=== PATIENT | male | born 1955 | race Caucasian/White ===

== ENCOUNTER → 2022-01-30 16:51 | Outpatient (CLI) | payer MEDICARE, OTHER, SELFPAY | PROVIDERS: PCP Family Medicine; Visit Provider Physician Assistant Medical | DX: Z01.818 Encounter for other preprocedural examination (principal) | CPT/HCPCS: 87797 ==

== ENCOUNTER → 2022-01-31 10:00 | Outpatient (CLI) | payer MEDICARE, OTHER, SELFPAY ==
[2022-01-31 19:40] LABS: Hemoglobin A1C% w Est Avg Glu 6.2 % (4.0-6.0)
[2022-01-31 19:41] LABS: Alanine Aminotransferase 56 IU/L (<50); Albumin 4.3 g/dL (3.5-5.0); Albumin Globulin Ratio 1.6 (1.0-2.8); Alkaline Phosphatase 80 U/L (38-126); Aspartate Aminotransferase 44 IU/L (17-59); BUN Creatinine Ratio 17.6 (6-22); Blood Urea Nitrogen 13 mg/dL (9-20); Calcium 9.5 mg/dL (8.4-10.2); Carbon Dioxide 30 mmol/L (22-32); Chloride 101 mmol/L (98-107); Estimated Glomerular Filt Rate > 60.0 mL/min (>60); Globulin 2.7 g/dL (1.7-4.1); Glucose 107 mg/dL (80-110); HEMOLYSIS < 15 (0-50); Potassium 4.2 mmol/L (3.4-5.1); Sodium 137 mmol/L (137-145)
[2022-01-31 19:42] LABS: Cholesterol 186 mg/dL (140-199); HDL Cholesterol 51 mg/dL (40-60); LDL Cholesterol Calculated 115 mg/dL (<100); Triglycerides 102 mg/dL (35-150)
[2022-01-31 19:57] LABS: Add Manual Diff / Slide Review NO; Basophils Absolute Auto 0 /uL (0-100); Basophils Percent Auto 0.4 % (0-2); Eosinophils Absolute Auto 200 /uL (0-450); Hematocrit 43.6 % (41-53); Lymphocytes Absolute Auto 1500 /uL (1100-4500); Lymphocytes Percent Auto 26.7 % (25-40); Mean Corpuscular HGB Conc 34.4 % (30-36); Mean Corpuscular Volume 90.2 fL (80-100); Monocytes Absolute Auto 500 /uL (0-900); Monocytes Percent Auto 8.9 % (3-14); Neutrophils Absolute Auto 3400 /uL (1500-7000); Platelet Count 150 X10^3/uL (150-400); Red Blood Cell Count 4.84 X10^6/uL (4.5-5.9); Red Cell Distribution Width 12.9 % (11.6-14.8); White Blood Cell Count 5.6 X10^3/uL (4.5-11.0)
[2022-01-31 20:17] LABS: Prostate Specific Antigen Scrn 1.14 ng/mL (0.1-4.0)
== END ==
PROVIDERS: Podiatrist Foot & Ankle Surgery; PCP Family Medicine
DX: Z01.818 Encounter for other preprocedural examination (principal); Z01.812 Encounter for preprocedural laboratory examination; I10 Essential (primary) hypertension; Z12.5 Encounter for screening for malignant neoplasm of prostate
CPT/HCPCS: 80053; 80061; 83036; 85025; G0103

== ENCOUNTER → 2022-09-09 11:56 | Outpatient (CLI) | payer MEDICARE, OTHER, SELFPAY ==
[2022-09-09 19:04] LABS: Add Manual Diff / Slide Review NO; Basophils Absolute Auto 0 /uL (0-100); Basophils Percent Auto 0.5 % (0-2); Eosinophils Absolute Auto 300 /uL (0-450); Eosinophils Percent Auto 4.9 % (2-4); Hematocrit 41.6 % (41-53); Hemoglobin 14.5 g/dL (13.5-17.5); Lymphocytes Absolute Auto 1500 /uL (1100-4500); Lymphocytes Percent Auto 25.9 % (25-40); Mean Corpuscular Hemoglobin 30.8 PG (26-34); Mean Corpuscular Volume 88.2 fL (80-100); Monocytes Absolute Auto 500 /uL (0-900); Monocytes Percent Auto 9.5 % (3-14); Neutrophils Absolute Auto 3400 /uL (1500-7000); Neutrophils Percent Auto 59.2 % (50-75); Platelet Count 159 X10^3/uL (150-400); Red Blood Cell Count 4.72 X10^6/uL (4.5-5.9); Red Cell Distribution Width 14.1 % (11.6-14.8); White Blood Cell Count 5.8 X10^3/uL (4.5-11.0)
[2022-09-09 19:25] LABS: Alanine Aminotransferase 48 IU/L (<50); Albumin 4.1 g/dL (3.5-5.0); Albumin Globulin Ratio 1.5 (1.0-2.8); Alkaline Phosphatase 106 U/L (38-126); Aspartate Aminotransferase 38 IU/L (17-59); BUN Creatinine Ratio 15.9 (6-22); Bilirubin Total 0.5 mg/dL (0.2-1.3); Blood Urea Nitrogen 11 mg/dL (9-20); Carbon Dioxide 29 mmol/L (22-32); Chloride 98 mmol/L (98-107); Estimated Glomerular Filt Rate > 60 mL/min (>60); Globulin 2.7 g/dL (1.7-4.1); Glucose 143 mg/dL (80-110); HEMOLYSIS < 15 (0-50); Potassium 3.9 mmol/L (3.4-5.1); Sodium 136 mmol/L (137-145); Total Protein 6.8 g/dL (6.3-8.2)
[2022-09-09 19:53] LABS: Prostate Specific Antigen Scrn 1.82 ng/mL (0.1-4.0)
== END ==
PROVIDERS: PCP Family Medicine; Visit Provider Family Medicine
DX: I10 Essential (primary) hypertension (principal); Z12.5 Encounter for screening for malignant neoplasm of prostate; Z00.00 Encounter for general adult medical examination without abnormal findings; Z80.42 Family history of malignant neoplasm of prostate
CPT/HCPCS: 80053; 85025; G0103

== ENCOUNTER → 2022-09-26 07:45 | Outpatient (CLI) | payer MEDICARE, OTHER, SELFPAY ==
[2022-09-26 21:22] LABS: COVID19 - ORCAS (NP or Nasal) Negative (Negative)
== END ==
PROVIDERS: PCP Family Medicine; Visit Provider Family Medicine
DX: Z20.822 Contact with and (suspected) exposure to COVID-19 (principal); Z01.812 Encounter for preprocedural laboratory examination
CPT/HCPCS: C9803; U0003

== ENCOUNTER 2022-09-27 11:42 | Day surgery (SDC) | payer MEDICARE, OTHER, SELFPAY ==
--- NOTE | 2022-09-27 | PATH_ITS ---
[facility] Accession Number: [id number] No. of containers..01 Tissue . 01 Material submitted: . rectum - RECTAL POLYP . 01 Diagnosis: Rectal Polyp: Tubular adenoma. MRV 10/02/2022 1444 Local . 01 Electronically signed: . Tania Georges MD, Pathologist NPI- [id number] . 01 Gross description: . RECTAL POLYP: Received in formalin is 1 fragment(s) of freeman, soft tissue measuring 0.5 x 0.4 x 0.2 cm submitted entirely in 1 cassette(s) /AUGUSTUS 10/01/2022 1923 Local . 01 Pathologist provided ICD-10: K63.5 . 01 CPT . 484461 Specimen Comment: A courtesy copy of this report has been sent to [facility] Performed at: 01 [facility] [address] [place] [address] [id number] MD Sascha Carlin MD Phone: [phone]
[2022-09-27] MEDS: LACTATED RINGERS 1,000 ML 42 ML IV (12:03)
[2022-09-27 12:16] VITALS: BP 138/87; PULSE 73; RESP 16; TEMP 36.4; O2SAT 96; BMI 31.0
--- NOTE | 2022-09-27 14:08 | P.HP_ITS ---
History of Present Illness History of Present Illness Chief complaint: [facility] Narrative: Mr. Denson presents today for screening colonoscopy. Never had 1 before. He has no family history of colon cancer. He occasionally has diarrhea or constipation off and on but has never had any bleeding from below. Patient History Medical History Ankle pain Asthma Family history of prostate cancer Hearing loss Hypertension Well adult exam Surgical History Anesthesia History of knee replacement (~2018) History of partial knee replacement Family & Social History Family History Father Cancer Social History: household members spouse Tobacco & Substance use: Smoking Status Never smoker alcohol intake current alcohol intake frequency a few times a week Substance Use Type does not use Meds Home Medications and Allergies Home Medications Medication Instructions Recorded Confirmed Type albuterol sulfate 90 mcg/actuation 2 puff inhalation Q6H PRN 11/02/21 09/27/22 Rx aerosol inhaler (ProAir HFA) shortness of breath or wheezing #8.5 grams hydrochlorothiazide 25 mg tablet 25 mg PO DAILY #90 tabs 11/02/21 09/27/22 Rx lisinopril 40 mg tablet 40 mg PO DAILY #90 tabs 11/02/21 09/27/22 Rx aspirin 81 mg tablet,delayed 81 mg PO DAILY 01/31/22 09/27/22 History release (Adult Low Dose Aspirin) Allergies Allergy/AdvReac Type Severity Reaction Status Date / Time No Known Drug Allergies Allergy Verified 09/27/22 12:07 Exam Vital Signs (past 8 hours): - 09/27/22 12:16 Temperature 97.6 F Pulse Rate 73 Respiratory Rate 16 Blood Pressure 138/87 Pulse Oximetry 96 Oxygen Delivery Method Room Air Oxygen Delivery Method Room Air Const General: cooperative and healthy appearing Eyes General: appearance normal, both eyes and all related structures Resp Effort & Inspection: normal respiratory effort and able to speak in complete sentences Cardio Pulses: radial pulses present GI Palpation: soft and No tender Assessment & Plan Assessment and plan (1) Screen for colon cancer: Status: Acute Assessment & Plan narrative: I discussed the risks benefits and alternatives with Mr. Virk including but not limited to perforation of the colon. Stands the risks and the benefits and does wish to proceed with a screening colonoscopy today. Time Spent With Patient Critical Care time: I spent a total of [] minutes of critical care time on this patient's care today; this time is exclusive of procedural time.
--- NOTE | 2022-09-27 15:10 | PM.OP.COLON ---
Procedure & Clinicians Study performed: Colonoscopy and polypectomy Same procedure as scheduled: Yes Indications: Screening Surgeon: Elle Johnson Procedure Notes Procedure in detail: Patient was taken to the endoscopy suite and placed in a left lateral decubitus position. Time-out was performed sedation was induced by anesthesia provider. Digital rectal exam was performed. Scope was introduced and advanced through to the cecum. Photograph of the appendiceal orifice was taken. Prep in this case was not great there was a lot of staining on the capps a lot of suction and irrigating was required to visualize the mucosa. Some of the fecal matter was stuck pretty densely to the capps. The bowel prep score is a 1. No polyps were seen as the withdrawal proceeded and plenty of time was taken 24 minutes in total. One polypectomy was performed for a small polyp seen in the rectum. Specimen(s): other (1. Rectal polyp) Complications: none Post-procedure Recommendations: Colonoscopy in 5 years Plan for aftercare: We will see the results from the polypectomy. But also taking into consideration the prep think I would err on the side of the shorter recommended follow-up which in this case would be probably 5 years.
[2022-09-27 15:13] VITALS: BP 113/78; PULSE 78; RESP 10; TEMP 36.3; O2SAT 95
[2022-09-27 15:18] VITALS: BP 109/76; PULSE 81; RESP 11; O2SAT 96
[2022-09-27 15:23] VITALS: BP 127/79; PULSE 78; RESP 11; O2SAT 96
[2022-09-27 15:28] VITALS: BP 133/89; PULSE 68; RESP 16; O2SAT 89
[2022-09-27 15:36] VITALS: BP 145/93; PULSE 77; RESP 16; TEMP 36.6; O2SAT 95
== END 2022-09-27 16:00 | disposition home or self-care (01) ==
PROVIDERS: PCP Family Medicine; Referring Provider Surgery; Visit Provider Surgery
PROC: 0DJD8ZZ Inspection of Lower Intestinal Tract, Via Natural or Artificial Opening Endoscopic (ICD-10-PCS; CPT 45378; principal; 2022-09-27 12:45)
DX: Z12.11 Encounter for screening for malignant neoplasm of colon (principal); D12.8 Benign neoplasm of rectum
CPT/HCPCS: 45380; J2704

== ENCOUNTER → 2022-10-23 08:38 | Outpatient (CLI) | payer MEDICARE, OTHER, SELFPAY ==
[2022-10-23 09:56] LABS: Alanine Aminotransferase 45 IU/L (<50); Albumin 4.5 g/dL (3.5-5.0); Albumin Globulin Ratio 1.7 (1.0-2.8); Alkaline Phosphatase 93 U/L (38-126); Aspartate Aminotransferase 39 IU/L (17-59); BUN Creatinine Ratio 15.7 (6-22); Bilirubin Total 0.7 mg/dL (0.2-1.3); Blood Urea Nitrogen 11 mg/dL (9-20); Carbon Dioxide 31 mmol/L (22-32); Chloride 96 mmol/L (98-107); Estimated Glomerular Filt Rate > 60 mL/min (>60); Globulin 2.7 g/dL (1.7-4.1); Glucose 102 mg/dL (80-110); HEMOLYSIS < 15 (0-50); Potassium 4.2 mmol/L (3.4-5.1); Sodium 137 mmol/L (137-145); Total Protein 7.2 g/dL (6.3-8.2)
[2022-10-23 10:54] LABS: Hemoglobin A1C% w Est Avg Glu 6.4 % (4.0-6.0)
== END ==
PROVIDERS: PCP Family Medicine; Referring Provider Family Medicine; Visit Provider Family Medicine
DX: R73.9 Hyperglycemia, unspecified (principal); R89.9 Unspecified abnormal finding in specimens from other organs, systems and tissues; Z13.9 Encounter for screening, unspecified
CPT/HCPCS: 36415; 80053; 83036

== ENCOUNTER → 2022-11-13 14:22 | Outpatient (CLI) | payer MEDICARE, OTHER, SELFPAY ==
[2022-11-13 20:46] LABS: Add Manual Diff / Slide Review NO; Basophils Absolute Auto 0 /uL (0-100); Basophils Percent Auto 0.5 % (0-2); Eosinophils Absolute Auto 300 /uL (0-450); Eosinophils Percent Auto 2.7 % (2-4); Hematocrit 44.6 % (41-53); Hemoglobin 15.3 g/dL (13.5-17.5); Lymphocytes Absolute Auto 1500 /uL (1100-4500); Lymphocytes Percent Auto 14.6 % (25-40); Mean Corpuscular HGB Conc 34.3 % (30-36); Mean Corpuscular Volume 87.7 fL (80-100); Monocytes Absolute Auto 1100 /uL (0-900); Monocytes Percent Auto 11.4 % (3-14); Neutrophils Absolute Auto 7100 /uL (1500-7000); Neutrophils Percent Auto 70.8 % (50-75); Platelet Count 232 X10^3/uL (150-400); Red Blood Cell Count 5.08 X10^6/uL (4.5-5.9); Red Cell Distribution Width 13.1 % (11.6-14.8); White Blood Cell Count 10.1 X10^3/uL (4.5-11.0)
[2022-11-13 20:57] LABS: C-Reactive Protein Quant 3.9 mg/dL (<1.0)
[2022-11-13 21:23] LABS: Erythrocyte Sedimentation Rate 44 MM/HR (0-15)
== END ==
PROVIDERS: PCP Family Medicine; Visit Provider Family Medicine
DX: I10 Essential (primary) hypertension (principal); M79.10 Myalgia, unspecified site
CPT/HCPCS: 85025; 85651; 86140

== ENCOUNTER → 2022-12-06 09:16 | Outpatient (CLI) | payer MEDICARE, OTHER, SELFPAY ==
[2022-12-06 10:29] LABS: Erythrocyte Sedimentation Rate 11 MM/HR (0-15)
[2022-12-06 10:50] LABS: Rheumatoid Factor < 8.6 IU/mL (<12.0)
[2022-12-11 15:11] LABS: ANA Screen, IFA Negative (.)
== END ==
PROVIDERS: PCP Family Medicine; Referring Provider Family Medicine; Visit Provider Family Medicine
DX: E74.39 Other disorders of intestinal carbohydrate absorption (principal); M25.50 Pain in unspecified joint; M35.3 Polymyalgia rheumatica
CPT/HCPCS: 36415; 85651; 86038; 86140; 86430

== ENCOUNTER → 2023-01-10 14:47 | Outpatient (CLI) | payer MEDICARE, OTHER, SELFPAY ==
[2023-01-10 16:07] LABS: Alanine Aminotransferase 44 IU/L (<50); Albumin 4.4 g/dL (3.5-5.0); Albumin Globulin Ratio 1.5 (1.0-2.8); Alkaline Phosphatase 68 U/L (38-126); Aspartate Aminotransferase 27 IU/L (17-59); Bilirubin Total 0.4 mg/dL (0.2-1.3); Blood Urea Nitrogen 20 mg/dL (9-20); C-Reactive Protein Quant < 0.5 mg/dL (<1.0); Calcium 9.5 mg/dL (8.4-10.2); Carbon Dioxide 30 mmol/L (22-32); Chloride 99 mmol/L (98-107); Estimated Glomerular Filt Rate > 60 mL/min (>60); Globulin 2.9 g/dL (1.7-4.1); Glucose 86 mg/dL (80-110); HEMOLYSIS < 15 (0-50); Potassium 4.2 mmol/L (3.4-5.1); Sodium 136 mmol/L (137-145); Total Protein 7.3 g/dL (6.3-8.2)
[2023-01-10 16:14] LABS: Rheumatoid Factor < 8.6 IU/mL (<12.0)
[2023-01-10 16:34] LABS: Erythrocyte Sedimentation Rate 5 MM/HR (0-15)
[2023-01-13 18:29] LABS: CCP Antibodies IgG/IgA 15 units (0-19)
== END ==
PROVIDERS: PCP Family Medicine; Referring Provider Internal Medicine Rheumatology; Visit Provider Internal Medicine Rheumatology
DX: M35.3 Polymyalgia rheumatica (principal)
CPT/HCPCS: 36415; 80053; 85651; 86140; 86200; 86430

== ENCOUNTER → 2023-02-28 08:43 | Outpatient (CLI) | payer MEDICARE, OTHER, SELFPAY ==
[2023-02-28 09:27] LABS: Add Manual Diff / Slide Review NO; Basophils Absolute Auto 0 /uL (0-100); Basophils Percent Auto 0.5 % (0-2); Eosinophils Absolute Auto 200 /uL (0-450); Eosinophils Percent Auto 1.8 % (2-4); Hematocrit 39.9 % (41-53); Hemoglobin 13.7 g/dL (13.5-17.5); Lymphocytes Absolute Auto 1100 /uL (1100-4500); Lymphocytes Percent Auto 13.5 % (25-40); Mean Corpuscular HGB Conc 34.5 % (30-36); Mean Corpuscular Hemoglobin 31.5 PG (26-34); Mean Corpuscular Volume 91.4 fL (80-100); Monocytes Absolute Auto 800 /uL (0-900); Monocytes Percent Auto 9.6 % (3-14); Neutrophils Absolute Auto 6300 /uL (1500-7000); Neutrophils Percent Auto 74.6 % (50-75); Platelet Count 181 X10^3/uL (150-400); Red Blood Cell Count 4.36 X10^6/uL (4.5-5.9); Red Cell Distribution Width 17.2 % (11.6-14.8); White Blood Cell Count 8.4 X10^3/uL (4.5-11.0)
== END ==
PROVIDERS: PCP Family Medicine; Referring Provider Internal Medicine Rheumatology; Visit Provider Internal Medicine Rheumatology
DX: M35.3 Polymyalgia rheumatica (principal)
CPT/HCPCS: 85025

== ENCOUNTER → 2023-04-10 09:05 | Outpatient (CLI) | payer MEDICARE, OTHER, SELFPAY ==
[2023-04-10 10:20] LABS: HEMOLYSIS < 15 (0-50); Iron 60 ug/dL (49-181)
[2023-04-10 10:23] LABS: Alanine Aminotransferase 39 IU/L (<50); Albumin 4.3 g/dL (3.5-5.0); Albumin Globulin Ratio 1.6 (1.0-2.8); Alkaline Phosphatase 89 U/L (38-126); Aspartate Aminotransferase 33 IU/L (17-59); BUN Creatinine Ratio 14.3 (6-22); Bilirubin Total 0.4 mg/dL (0.2-1.3); Blood Urea Nitrogen 10 mg/dL (9-20); Calcium 9.2 mg/dL (8.4-10.2); Carbon Dioxide 33 mmol/L (22-32); Chloride 97 mmol/L (98-107); Estimated Glomerular Filt Rate > 60 mL/min (>60); Globulin 2.7 g/dL (1.7-4.1); Glucose 141 mg/dL (80-110); HEMOLYSIS < 15 (0-50); Sodium 136 mmol/L (137-145)
[2023-04-10 10:32] LABS: Add Manual Diff / Slide Review NO; Basophils Absolute Auto 0 /uL (0-100); Basophils Percent Auto 0.4 % (0-2); Eosinophils Absolute Auto 200 /uL (0-450); Eosinophils Percent Auto 2.2 % (2-4); Hematocrit 39.3 % (41-53); Hemoglobin 13.6 g/dL (13.5-17.5); Lymphocytes Absolute Auto 1100 /uL (1100-4500); Lymphocytes Percent Auto 13.1 % (25-40); Mean Corpuscular HGB Conc 34.7 % (30-36); Mean Corpuscular Hemoglobin 32.8 PG (26-34); Mean Corpuscular Volume 94.5 fL (80-100); Monocytes Absolute Auto 700 /uL (0-900); Monocytes Percent Auto 8.5 % (3-14); Neutrophils Absolute Auto 6200 /uL (1500-7000); Neutrophils Percent Auto 75.8 % (50-75); Platelet Count 196 X10^3/uL (150-400); Red Blood Cell Count 4.16 X10^6/uL (4.5-5.9); Red Cell Distribution Width 14.3 % (11.6-14.8); White Blood Cell Count 8.2 X10^3/uL (4.5-11.0)
[2023-04-10 10:34] LABS: Percent Iron Saturation 17 % (20-50); Total Iron Binding Capacity 343 ug/dL (261-462); Transferrin 252 mg/dL (206-381)
[2023-04-11 05:47] LABS: Labcorp Hemoglobin (Hb) A1c 6.1 % (4.8-5.6)
== END ==
PROVIDERS: PCP Family Medicine; Referring Provider Family Medicine; Visit Provider Family Medicine
DX: I10 Essential (primary) hypertension; E74.39 Other disorders of intestinal carbohydrate absorption; D64.9 Anemia, unspecified; K59.00 Constipation, unspecified; M35.3 Polymyalgia rheumatica; R10.12 Left upper quadrant pain
CPT/HCPCS: 36415; 80053; 83036; 83540; 83550; 85025

== ENCOUNTER → 2023-04-15 10:23 | Outpatient (CLI) | payer MEDICARE, OTHER, SELFPAY ==
[2023-04-17 11:14] LABS: Fecal Immunochemical Test Negative (Negative)
== END ==
PROVIDERS: PCP Family Medicine; Visit Provider Family Medicine
DX: D64.9 Anemia, unspecified (principal); K59.00 Constipation, unspecified; R10.12 Left upper quadrant pain; M35.3 Polymyalgia rheumatica
CPT/HCPCS: 82274

== ENCOUNTER → 2023-04-22 09:28 | Outpatient (CLI) | payer MEDICARE, OTHER, SELFPAY ==
--- NOTE | 2023-04-22 10:46 | DI.CT.S_ITS ---
PROCEDURE: CT ABDOMEN PELVIS W CON INDICATIONS: Abdominal pain worsening TECHNIQUE: After the administration of oral and intravenous contrast, axial sections were acquired from the lung bases to the pubic symphysis. Coronal and sagittal reformats were performed. For radiation dose reduction, the following was used: automated exposure control, adjustment of mA and/or kV according to patient size. COMPARISON:None. FINDINGS: Image quality: Excellent. Lung bases: Lung bases are clear. Heart: Heart size is normal. Coronary atherosclerotic vascular calcifications are noted. ABDOMEN: Liver: There is diffuse hypoattenuation of the liver parenchyma relative to the spleen compatible with hepatic steatosis. Gallbladder: Gallbladder is unremarkable without CT evidence for acute inflammation. Biliary ducts: No intrahepatic or extrahepatic biliary ductal dilatation identified. Pancreas: Homogeneous enhancement without focal lesions or pancreatic ductal dilatation. No peripancreatic inflammation or organized fluid collections. Spleen: No splenomegaly. Adrenal Glands: Unremarkable. Kidneys and Ureters: Kidneys are symmetric in size and enhancement, and there is no obstructive uropathy. No perinephric inflammatory changes. Ureters are normal in course and caliber. Stomach and Bowel: Stomach, small bowel loops, and colon are unremarkable. Normal appendix. Peritoneum: No abnormal intraperitoneal fluid. No free air. Ventral Wall: There is a fat-containing umbilical hernia without acute inflammation. Abdominal Nodes: No retroperitoneal or mesenteric adenopathy by size criteria. Vessels: Scattered atherosclerotic calcifications of the abdominal aorta and iliac vessels without aneurysmal dilatation. The inferior vena cava appears patent. PELVIS: Pelvic Organs: Unremarkable. Bladder: Urinary bladder is decompressed. Circumferential wall thickening likely related to incomplete distension. Pelvic Nodes: No enlarged lymph nodes. Miscellaneous: No inguinal hernias are seen. Bones: No acute vertebral body compression fractures. Multilevel spondylitic changes throughout the imaged spine. No suspicious osseous lesions. IMPRESSION: 1. CT abdomen and pelvis without acute abnormalities to explain patient's symptoms. 2. Hepatic steatosis. 3. Atherosclerosis. 4. Fat containing umbilical hernia without acute inflammation. Other chronic findings as above. Approved by: Bob Anthony M.D. on 04/22/2023 at 17:48
== END ==
PROVIDERS: PCP Family Medicine; Referring Provider Family Medicine; Visit Provider Family Medicine
DX: K76.0 Fatty (change of) liver, not elsewhere classified (principal); K42.9 Umbilical hernia without obstruction or gangrene; I25.10 Atherosclerotic heart disease of native coronary artery without angina pectoris; R10.12 Left upper quadrant pain
CPT/HCPCS: 74177

== ENCOUNTER → 2023-11-26 09:05 | Outpatient (CLI) | payer MEDICARE, OTHER, SELFPAY ==
[2023-11-26 10:05] LABS: Add Manual Diff / Slide Review NO; Basophils Absolute Auto 0 /uL (0-100); Basophils Percent Auto 0.6 % (0-2); Eosinophils Absolute Auto 200 /uL (0-450); Eosinophils Percent Auto 2.7 % (2-4); Hematocrit 44.1 % (41-53); Hemoglobin 15.2 g/dL (13.5-17.5); Lymphocytes Absolute Auto 1300 /uL (1100-4500); Lymphocytes Percent Auto 16.8 % (25-40); Mean Corpuscular HGB Conc 34.4 % (30-36); Mean Corpuscular Hemoglobin 32.1 PG (26-34); Mean Corpuscular Volume 93.3 fL (80-100); Monocytes Absolute Auto 600 /uL (0-900); Monocytes Percent Auto 7.7 % (3-14); Neutrophils Absolute Auto 5400 /uL (1500-7000); Neutrophils Percent Auto 72.2 % (50-75); Platelet Count 165 X10^3/uL (150-400); Red Blood Cell Count 4.73 X10^6/uL (4.5-5.9); Red Cell Distribution Width 15.4 % (11.6-14.8); White Blood Cell Count 7.5 X10^3/uL (4.5-11.0)
[2023-11-26 10:18] LABS: Hemoglobin A1C% w Est Avg Glu 6.2 % (4.0-6.0)
[2023-11-26 10:23] LABS: BUN Creatinine Ratio 22.7 (6-22); Blood Urea Nitrogen 17 mg/dL (9-20); Calcium 9.8 mg/dL (8.4-10.2); Carbon Dioxide 29 mmol/L (22-32); Chloride 100 mmol/L (98-107); Cholesterol 180 mg/dL (140-199); Estimated Glomerular Filt Rate > 60 mL/min (>60); Glucose 112 mg/dL (80-110); HDL Cholesterol 58 mg/dL (40-60); HEMOLYSIS 16 (0-50); Potassium 4.5 mmol/L (3.4-5.1); Sodium 136 mmol/L (137-145); Triglycerides 117 mg/dL (35-150)
[2023-11-26 10:24] LABS: LDL Cholesterol Calculated 99 mg/dL (<100)
[2023-11-26 10:48] LABS: Creatinine Urine Random 89.2 mg/dL
[2023-11-26 10:52] LABS: Microalbumin Urine Random < 0.6 mg/dL (0-1.6)
[2023-11-26 11:01] LABS: Thyroid Stimulating Hormone 2.45 uIU/mL (0.47-4.68)
[2023-11-26 11:09] LABS: Vitamin B12 > 1000 pg/mL (239-931)
== END ==
PROVIDERS: PCP Family Medicine; Referring Provider Family Medicine; Visit Provider Family Medicine
DX: I10 Essential (primary) hypertension (principal); R73.03 Prediabetes; D64.9 Anemia, unspecified; M35.3 Polymyalgia rheumatica
CPT/HCPCS: 36415; 80048; 80061; 82043; 82570; 82607; 83036; 84443; 85025

== ENCOUNTER → 2024-05-18 13:04 | Outpatient (CLI) | payer MEDICARE, OTHER, SELFPAY ==
[2024-05-18 20:32] LABS: Add Manual Diff / Slide Review NO; Basophils Absolute Auto 0 /uL (0-100); Basophils Percent Auto 0.4 % (0-2); Eosinophils Absolute Auto 300 /uL (0-450); Hematocrit 41.2 % (41-53); Hemoglobin 14.3 g/dL (13.5-17.5); Lymphocytes Absolute Auto 1400 /uL (1100-4500); Lymphocytes Percent Auto 21.4 % (25-40); Mean Corpuscular HGB Conc 34.7 % (30-36); Mean Corpuscular Volume 92.4 fL (80-100); Monocytes Absolute Auto 600 /uL (0-900); Monocytes Percent Auto 9.2 % (3-14); Neutrophils Absolute Auto 4200 /uL (1500-7000); Platelet Count 178 X10^3/uL (150-400); Red Blood Cell Count 4.46 X10^6/uL (4.5-5.9); Red Cell Distribution Width 13.8 % (11.6-14.8); White Blood Cell Count 6.4 X10^3/uL (4.5-11.0)
[2024-05-18 20:35] LABS: Hemoglobin A1C% w Est Avg Glu 5.9 % (4.0-6.0)
[2024-05-18 20:37] LABS: BUN Creatinine Ratio 17.3 (6-22); Blood Urea Nitrogen 13 mg/dL (9-20); Calcium 9.1 mg/dL (8.4-10.2); Carbon Dioxide 28 mmol/L (22-32); Chloride 104 mmol/L (98-107); Estimated Glomerular Filt Rate > 60 mL/min (>60); Glucose 100 mg/dL (80-110); HEMOLYSIS < 15 (0-50); Potassium 4.3 mmol/L (3.4-5.1); Sodium 137 mmol/L (137-145)
[2024-05-18 20:42] LABS: Erythrocyte Sedimentation Rate 5 MM/HR (0-15)
[2024-05-18 21:11] LABS: Prostate Specific Antigen Scrn 1.53 ng/mL (0.1-4.0)
== END ==
PROVIDERS: PCP Family Medicine; Visit Provider Family Medicine
DX: Z12.5 Encounter for screening for malignant neoplasm of prostate (principal); R73.03 Prediabetes; D64.9 Anemia, unspecified; M35.3 Polymyalgia rheumatica; I10 Essential (primary) hypertension; Z80.42 Family history of malignant neoplasm of prostate
CPT/HCPCS: 80048; 83036; 85025; 85651; G0103

== ENCOUNTER → 2024-11-01 09:35 | Outpatient (CLI) | payer MEDICARE, OTHER, SELFPAY ==
[2024-11-01 19:38] LABS: Add Manual Diff / Slide Review NO; Basophils Absolute Auto 0 /uL (0-100); Basophils Percent Auto 0.5 % (0-2); Eosinophils Absolute Auto 300 /uL (0-450); Hemoglobin 15.9 g/dL (13.5-17.5); Lymphocytes Absolute Auto 1500 /uL (1100-4500); Lymphocytes Percent Auto 23.6 % (25-40); Mean Corpuscular HGB Conc 33.8 % (30-36); Mean Corpuscular Hemoglobin 31.6 PG (26-34); Mean Corpuscular Volume 93.6 fL (80-100); Monocytes Absolute Auto 600 /uL (0-900); Monocytes Percent Auto 9.2 % (3-14); Neutrophils Absolute Auto 3900 /uL (1500-7000); Neutrophils Percent Auto 61.7 % (50-75); Platelet Count 170 X10^3/uL (150-400); Red Blood Cell Count 5.02 X10^6/uL (4.5-5.9); Red Cell Distribution Width 13.7 % (11.6-14.8); White Blood Cell Count 6.3 X10^3/uL (4.5-11.0)
[2024-11-01 19:46] LABS: Cholesterol 195 mg/dL (140-199); HDL Cholesterol 57 mg/dL (40-60); LDL Cholesterol Calculated 104 mg/dL (<100); Triglycerides 168 mg/dL (35-150)
[2024-11-01 19:47] LABS: Hemoglobin A1C% w Est Avg Glu 5.9 % (4.0-6.0)
[2024-11-01 19:50] LABS: Alanine Aminotransferase 39 IU/L (<50); Albumin 4.3 g/dL (3.5-5.0); Albumin Globulin Ratio 1.9 (1.0-2.8); Alkaline Phosphatase 88 U/L (38-126); Aspartate Aminotransferase 38 IU/L (17-59); BUN Creatinine Ratio 16.2 (6-22); Bilirubin Total 0.8 mg/dL (0.2-1.3); Blood Urea Nitrogen 12 mg/dL (9-20); C-Reactive Protein Quant < 0.5 mg/dL (<1.0); Calcium 9.2 mg/dL (8.4-10.2); Carbon Dioxide 26 mmol/L (22-32); Chloride 104 mmol/L (98-107); Estimated Glomerular Filt Rate > 60 mL/min (>60); Globulin 2.3 g/dL (1.7-4.1); Glucose 110 mg/dL (80-110); HEMOLYSIS 18 (0-50); Potassium 4.1 mmol/L (3.4-5.1); Sodium 137 mmol/L (137-145); Total Protein 6.6 g/dL (6.3-8.2)
[2024-11-01 20:20] LABS: Prostate Specific Antigen Scrn 1.48 ng/mL (0.1-4.0)
[2024-11-01 20:40] LABS: Erythrocyte Sedimentation Rate 1 MM/HR (0-15)
== END ==
PROVIDERS: Specialist/Technologist Athletic Trainer; PCP Family Medicine; Visit Provider Family Medicine
DX: I10 Essential (primary) hypertension (principal); R73.03 Prediabetes; Z12.5 Encounter for screening for malignant neoplasm of prostate; D84.9 Immunodeficiency, unspecified; Z13.220 Encounter for screening for lipoid disorders; M35.3 Polymyalgia rheumatica
CPT/HCPCS: 80053; 80061; 83036; 85025; 85651; 86140; G0103

== ENCOUNTER → 2025-11-14 10:34 | Outpatient (CLI) | payer MEDICARE, OTHER, SELFPAY ==
[2025-11-14 18:58] LABS: Add Manual Diff / Slide Review NO; Hematocrit 45.1 % (41-53); Hemoglobin 15.7 g/dL (13.5-17.5); Lymphocytes Absolute Auto 1700 /uL (1100-4500); Mean Corpuscular HGB Conc 34.9 % (30-36); Mean Corpuscular Hemoglobin 31.2 PG (26-34); Mean Corpuscular Volume 89.4 fL (80-100); Platelet Count 139 X10^3/uL (150-400)
[2025-11-14 19:05] LABS: Alanine Aminotransferase 77 IU/L (<50); Albumin 4.6 g/dL (3.5-5.0); Albumin Globulin Ratio 1.8 (1.0-2.8); Alkaline Phosphatase 87 U/L (38-126); Blood Urea Nitrogen 14 mg/dL (9-20); Calcium 9.3 mg/dL (8.4-10.2); Carbon Dioxide 28 mmol/L (22-32); Chloride 101 mmol/L (98-107); Cholesterol 191 mg/dL (140-199); Estimated Glomerular Filt Rate > 60 mL/min (>60); Globulin 2.6 g/dL (1.7-4.1); Glucose 112 mg/dL (70-99); HDL Cholesterol 56 mg/dL (40-60); HEMOLYSIS 16 (0-50); Hemoglobin A1C% w Est Avg Glu 6.1 % (4.0-6.0); Potassium 4.2 mmol/L (3.4-5.1); Sodium 138 mmol/L (137-145); Total Protein 7.2 g/dL (6.3-8.2); Triglycerides 109 mg/dL (35-150)
== END ==
PROVIDERS: PCP Family Medicine; Visit Provider Family Medicine
DX: E78.5 Hyperlipidemia, unspecified (principal); Z12.5 Encounter for screening for malignant neoplasm of prostate; D64.9 Anemia, unspecified; R73.03 Prediabetes; Z80.42 Family history of malignant neoplasm of prostate; I10 Essential (primary) hypertension; M35.3 Polymyalgia rheumatica
CPT/HCPCS: 80053; 80061; 83036; 85025; G0103